=== PATIENT | male | born 1940 | race Caucasian/White ===

== ENCOUNTER 2024-01-28 15:48 | Outpatient (AMB) | payer MEDICARE, SELFPAY ==
--- NOTE | 2024-01-28 16:05 | MHC.OFFWIV ---
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 While every effort has been made to ensure accuracy, manager of product errors may have been included. The patient is a 83 year old male who presents to the clinic today with left-sided hearing loss, onset several weeks ago which he resolve but it returned. He denies pain, fever, chills, any URI symptoms. He reports normal hearing in the right side. [facility] Social History Patient Tobacco Use Status: Former Tobacco user Review of Systems Const All systems reviewed & are unremarkable except as noted in HPI and below Physical Exam Vital Signs: Last Vital Signs Temp 97.7 F 01/28/24 16:06 Pulse 60 01/28/24 16:06 BP 120/74 01/28/24 16:06 Pulse Ox 98 01/28/24 16:06 Oxygen Delivery Method Room Air 01/28/24 16:06 BMI result Body Mass Index 27.5 Const General: cooperative, healthy appearing, comfortable and no acute distress Orientation/consciousness: patient oriented x3 HEENT Head: Yes normal to inspection and Yes normocephalic Ears: EAC's normal, mastoids normal and unable to visualize TM (cerumen impaction) on the left General nose exam: Normal external nose present Face and sinus: Yes normal facial exam Resp Effort & Inspection: normal respiratory effort and able to speak in complete sentences Neuro General: patient oriented x3 Office Procedures Cerumen Removal From which ear canal was the cerumen removed: left Removal: irrigation Notes: patient tolerated procedure well [id number] Irrigation/Lavage Assessment & Plan Assessment & Plan (1) Impacted cerumen of left ear: Code(s): H61.22 - Impacted cerumen, left ear Plan: In office irrigation successful with removal of tip of q tip. Advised avoidance of Q-tips in the ears, also suggested use of [id number] at-home cerumen softening drops such as Debrox as needed should he find wax involvement. Advised patient to follow up with PCP or audiology should he have recurrent issues with hearing. (2) Hearing loss due to cerumen impaction: Code(s): H61.20 - Impacted cerumen, unspecified ear Qualifiers: Laterality: left Qualified Code(s): H61.22 - Impacted cerumen, left ear Plan: Hearing improved with in office irrigation. Plan See above for full details and plan. Coding Level of Care Code Est Pt Level 4 (04132) Diagnoses Impacted cerumen of left ear H61.22 Hearing loss of left ear due to cerumen impaction H61.22 Laterality: left CPT Codes Office Procedure - CPT: 69792-Oqg Irrigation/Lavage ([id number])
[2024-01-28 16:06] VITALS: BP 120/74; PULSE 60; TEMP 36.5; O2SAT 98; BMI 27.5
== END 2024-01-28 17:46 | disposition home or self-care (01) ==
PROVIDERS: Visit Provider Registered Nurse
DX: H61.22 Impacted cerumen, left ear (principal)
CPT/HCPCS: 69209; 99214